=== PATIENT | female | born 1995 | race Caucasian/White ===

== ENCOUNTER 2016-11-18 08:27 | Emergency (ER) | payer SELFPAY ==
[2016-11-18] MEDS ORDERED: ONDANSETRON 4 MG TAB.RAPDIS PO ONE (09:32)
[2016-11-18] MEDS ORDERED: PREDNISONE 20 MG TABLET PO ONE (09:32)
[2016-11-18] MEDS ORDERED: OXYCODONE-ACETAMINOPHEN 5-325 MG TABLET PO ONE (09:32)
--- NOTE | 2016-11-18 09:40 | ER Document Report ---
ED ENT - General Mode of Arrival: Ambulatory Information source: Patient TRAVEL OUTSIDE OF THE [place] IN LAST 30 DAYS: No - HPI Patient complains to provider of: Throat problem Associated symptoms: Other - See above <DEAN PADILLA - Last Filed: 11/18/16 09:35> <ZACK SORIA - Last Filed: 11/18/16 11:08> - General Chief Complaint: Sore Throat Stated Complaint: sore throat Time Seen by Provider: 11/18/16 09:27 Notes: Patient is a 21 year old female who presents to the emergency department complaining of a sore throat onset 2 days ago. Patient states that it is painful to swallow and turn her head. Patient also complains of a fever, diaphoresis, vomiting, and swollen lymph nodes. Patient's last menstrual cycle was about 3 weeks ago. (DEAN PADILLA) - Related Data Allergies/Adverse Reactions: No Known Allergies Allergy (Unverified 11/18/16 08:38) Past Medical History - General Information source: Patient - Social History Smoking Status: Current Every Day Smoker Cigarette use (# per day): Yes - 5 Frequency of alcohol use: None Drug Abuse: Marijuana Family History: Reviewed & Not Pertinent Patient has suicidal ideation: No Patient has homicidal ideation: No - Immunizations Immunizations up to date: Yes Hx Diphtheria, Pertussis, Tetanus Vaccination: No <DEAN PADILLA - Last Filed: 11/18/16 09:35> Review of Systems - Review of Systems Constitutional: See HPI, Diaphoresis, Fever EENT: See HPI, Throat pain Cardiovascular: No symptoms reported Respiratory: No symptoms reported Gastrointestinal: See HPI, Vomiting Genitourinary: No symptoms reported Female Genitourinary: No symptoms reported Musculoskeletal: No symptoms reported Skin: No symptoms reported Hematologic/Lymphatic: No symptoms reported Neurological/Psychological: No symptoms reported -: Yes All other systems reviewed and negative <DEAN PADILLA - Last Filed: 11/18/16 09:35> Physical Exam - Vital signs Interpretation: Normal - General General appearance: Appears well, Alert - HEENT Head: Normocephalic, Atraumatic Tympanic membrane: Normal - not red Pharynx: Exudate, Uvular edema - with redness, Other - Tonsills are red and swollen Neck: Lymphadenopathy - anterior cervical lymphnodes tender and swllen - Respiratory Respiratory status: No respiratory distress Chest status: Nontender Breath sounds: Normal Chest palpation: Normal - Cardiovascular Rhythm: Regular Heart sounds: Normal auscultation Murmur: No - Extremities General upper extremity: Normal inspection General lower extremity: Normal inspection - Neurological Neuro grossly intact: Yes Cognition: Normal Orientation: AAOx4 [place] Coma Scale Eye Opening: Spontaneous Belinda Coma Scale Verbal: Oriented [place] Coma Scale Motor: Obeys Commands Belinda Coma Scale Total: 15 Speech: Normal - hoarse - Psychological Associated symptoms: Normal affect, Normal mood - Skin Skin Temperature: Warm Skin Moisture: Dry Skin Color: Normal <DEAN PADILLA - Last Filed: 11/18/16 09:35> Course <DEAN PADILLA - Last Filed: 11/18/16 09:35> - Laboratory Result Diagrams: 11/18/16 09:58 <ZACK SORIA - Last Filed: 11/18/16 11:08> - Re-evaluation Re-evalutation: 11/18/16 11:06 When I was reviewing the discharge instructions with the patient, she also brought up the fact that she has had a painful swelling in her left axilla which she has squeezed 1 of them open and got pus out. There is another area that is still reddened and tender. She has a history of MRSA infections. Exam shows a small red swollen tender area that is not fluctuant in the anterior axilla on the left. (ZACK SORIA) - Vital Signs Vital signs: Temp Pulse Resp BP Pulse Ox 98.7 F 110 H 14 107/73 100 11/18/16 08:40 11/18/16 08:40 11/18/16 10:28 11/18/16 08:40 11/18/16 08:40 - Laboratory Laboratory results interpreted by me: 11/18/16 09:58 WBC 20.3 H Seg Neuts % (Manual) 90 H Band Neutrophils % 1 L Lymphocytes % (Manual) 8 L Monocytes % (Manual) 1 L Abs Neuts (Manual) 18.5 H Discharge <DEAN PADILLA - Last Filed: 11/18/16 09:35> <ZACK SORIA - Last Filed: 11/18/16 11:08> - Discharge Clinical Impression: Strep throat, Abscess Leukocytosis Qualifiers: Leukocytosis type: unspecified Qualified Code(s): D72.829 - Elevated white blood cell count, unspecified Condition: Stable Disposition: HOME, SELF-CARE Additional Instructions: Strep Throat Your sore throat is due to the streptococcus germ (strep throat). Strep throat usually makes you feel quite ill with fever and aches, headache, swollen sore throat, and tender bumps under the angles of the jaw. Strep throat requires antibiotic treatment. Although the sore throat may go away by itself, complications such as rheumatic fever, kidney disease, or throat abscess can occur. We usually prescribe antibiotics by mouth. Be sure to take the medicine until it's gone. If you stop early, the strep may come back. If you are vomiting, are severely ill, or can't remember to take pills, we can give you an antibiotic shot. Take acetaminophen or ibuprofen for pain and fever. Sip frequent clear liquids, or use popsicles or ice chips. Anesthetic sprays or lozenges may help. Make sure the air in the room is not too dry. Avoid using decongestants or antihistamines. Call the doctor if there is no improvement in three days, or if you have difficulty breathing, increasing throat pain, high fever, rash, or frequent vomiting. Abscess You have an abscess (boil). This a pus-forming infection, usually due to staph. Some boils may be left to drain on their own, but most require lancing. From the time the tender lump first appears, it may be three or four days before the abscess is ready to ino. Local heat and rest help at this stage of treatment. An antibiotic may prevent spread of the infection. Once the abscess is opened, packing may be placed into it. This is done so pus is not sealed inside by premature closure of the cavity. The packing will be removed at your follow-up visit or you may be advised to remove it yourself at home. Sometimes this packing must be replaced a few times during healing. The wound will heal with surprisingly little scar. Depending on the size and location of an abscess, healing can take one to four weeks. You may shower and wash the area around the incision site two or three times a day. Antibiotics may be prescribed, but are usually not necessary after an abscess has been drained. If you develop fever, chilling, worsening pain, or increasing swelling in the area, call the doctor or return immediately. TAKE THE MEDICATIONS PRESCRIBED. DRINK PLENTY OF FLUIDS. TAKE TYLENOL AND MOTRIN FOR FEVER IF NEEDED. REST. FOLLOW UP WITH A LOCAL MEDICAL DOCTOR IF NOT IMPROVING. RETURN TO THE EMERGENCY ROOM IF ANY NEW OR WORSENING SYMPTOMS. Prescriptions: Cephalexin Monohydrate [Keflex 500 mg Capsule] 500 mg PO TID #30 capsule Hydrocodone/Acetaminophen [Hydrocodon-Acetaminophen 5-325] 1 each PO Q4 PRN #15 tablet PRN Reason: For Pain Sulfamethoxazole/Trimethoprim [Bactrim Ds Tablet] 2 tab PO BID #28 tablet Forms: Return to Work Scribe Attestation: 11/18/16 10:59 I personally performed the services described in the documentation, reviewed and edited the documentation which was dictated to the scribe in my presence, and it accurately records my words and actions. (ZACK SORIA) Scribe Documentation - Scribe Written by Anuel:: anuel Chandler, 11/18/16, 0941 acting as scribe for :: Hunter <DEAN PADILLA - Last Filed: 11/18/16 09:35>
[2016-11-18 10:11] LABS: HEMATOCRIT 38.1 % (36.0-47.0); HEMOGLOBIN 12.6 g/dL (12.0-15.5); HGB HCT DIFFERENCE -0.3; MEAN CORPUSCULAR HEMOGLOBIN 28.5 pg (27.0-33.4); MEAN CORPUSCULAR HGB CONC 33.1 g/dL (32.0-36.0); MEAN CORPUSCULAR VOLUME 86 fl (80-97); RED BLOOD COUNT 4.42 10^6/uL (3.72-5.28); RED CELL DISTRIBUTION WIDTH 13.4 % (11.5-14.0); WHITE BLOOD COUNT 20.3 10^3/uL (4.0-10.5)
[2016-11-18 10:27] LABS: BAND NEUTROPHILS % (MANUAL) 1 % (3-5); BASOPHILS % (MANUAL) 0 % (0-2); EOSINOPHILS % (MANUAL) 0 % (0-6); LYMPHOCYTES % (MANUAL) 8 % (13-45); TOTAL CELLS COUNTED 100
[2016-11-18 10:28] LABS: OVALOCYTES 1+; POIKILOCYTOSIS 1+
[2016-11-18] MEDS ORDERED: LIDOCAINE 1% INJ-PF (10 MG/ML) 30 ML SDV INJ ONE (10:55)
[2016-11-18] MEDS ORDERED: CEFTRIAXONE INJ 1000 MG VIAL IM ONE (10:55)
[2016-11-18 11:43] VITALS: BP 111/72
== END 2016-11-18 11:44 | disposition home or self-care (01) ==
LOC: ER 08:27
DX: J02.0 Streptococcal pharyngitis (principal); L02.412 Cutaneous abscess of left axilla; D72.829 Elevated white blood cell count, unspecified; R50.9 Fever, unspecified; R61 Generalized hyperhidrosis; R11.10 Vomiting, unspecified; R59.1 Generalized enlarged lymph nodes; F17.210 Nicotine dependence, cigarettes, uncomplicated; Z86.14 Personal history of Methicillin resistant Staphylococcus aureus infection
CPT/HCPCS: 99283; 96372; 36415; 87880; 84703; 85025; 86308; S0119; J3490; J7512; J0696

== ENCOUNTER 2017-01-16 10:33 | Emergency (ER) | payer SELFPAY ==
--- NOTE | 2017-01-16 11:19 | ER Document Report ---
ED GI/ - General Chief Complaint: Vag Bleeding, +preg <12wks Stated Complaint: VAGINAL BLEEDING Time Seen by Provider: 01/16/17 11:16 Mode of Arrival: Ambulatory Information source: Patient Notes: [age]-year-old G0 female with brown vaginal spotting and Monday none today, no cramps, nausea without vomiting, here in the emergency department to determine if she is actually or not. She had a home test that was positive last Monday. LMP 12/06/2016/. No dysuria or vaginal discharge. TRAVEL OUTSIDE OF THE [place] IN LAST 30 DAYS: No - Related Data Allergies/Adverse Reactions: No Known Allergies Allergy (Unverified 11/18/16 08:38) Past Medical History - General Information source: Patient - Social History Smoking Status: Current Some Day Smoker Frequency of alcohol use: None Drug Abuse: Marijuana - monday Lives with: Spouse/Significant other Family History: Reviewed & Not Pertinent - Medical History Medical History: Negative Renal/ Medical History: Denies: Hx Peritoneal Dialysis Surgical Hx: Negative - Immunizations Immunizations up to date: Yes Hx Diphtheria, Pertussis, Tetanus Vaccination: No Review of Systems - Review of Systems Constitutional: No symptoms reported EENT: No symptoms reported Cardiovascular: No symptoms reported Respiratory: No symptoms reported Gastrointestinal: No symptoms reported Genitourinary: No symptoms reported Female Genitourinary: See HPI Musculoskeletal: No symptoms reported Skin: No symptoms reported Hematologic/Lymphatic: No symptoms reported Neurological/Psychological: No symptoms reported Physical Exam - Vital signs Vitals: Temp Pulse Resp BP Pulse Ox 98.4 F 68 16 114/63 100 01/16/17 10:47 01/16/17 10:47 01/16/17 10:47 01/16/17 10:47 01/16/17 10:47 Interpretation: Normal - General General appearance: Appears well, Alert - HEENT Head: Normocephalic, Atraumatic Eyes: Normal Conjunctiva: Normal Pupils: PERRL Mucous membranes: Normal Neck: Supple. No: Lymphadenopathy - Respiratory Respiratory status: No respiratory distress Chest status: Nontender Breath sounds: Normal Chest palpation: Normal - Cardiovascular Rhythm: Regular Heart sounds: Normal auscultation Murmur: No - Abdominal Inspection: Normal Distension: No distension Bowel sounds: Normal Tenderness: Nontender. No: Tender Organomegaly: No organomegaly - Back Back: Normal, Nontender. No: CVA tenderness - Extremities General upper extremity: Normal inspection, Nontender, Normal color, Normal ROM , Normal temperature General lower extremity: Normal inspection, Nontender, Normal color, Normal ROM , Normal temperature, Normal weight bearing. No: Michelle's sign - Neurological Neuro grossly intact: Yes Cognition: Normal Orientation: AAOx4 [place] Coma Scale Eye Opening: Spontaneous Belinda Coma Scale Verbal: Oriented [place] Coma Scale Motor: Obeys Commands [place] Coma Scale Total: 15 Speech: Normal Motor strength normal: LUE, RUE, LLE, RLE Sensory: Normal - Psychological Associated symptoms: Normal affect, Normal mood - Skin Skin Temperature: Warm Skin Moisture: Dry Skin Color: Normal Skin irregularity: negative: Rash Course - Re-evaluation Re-evalutation: 01/16/17 13:06 37,859 quantitative, o positive. 01/16/17 14:12 yolk sac with fhr 125, viable IUP per radiologist - Vital Signs Vital signs: Temp Pulse Resp BP Pulse Ox 98.4 F 68 16 114/63 100 01/16/17 10:47 01/16/17 10:47 01/16/17 10:47 01/16/17 10:47 01/16/17 10:47 - Laboratory Laboratory results interpreted by me: 01/16/17 11:30 Beta HCG, Quant 49075.00 H Discharge - Discharge Clinical Impression: at early stage, viable IUP 7 weeks Condition: Good Disposition: HOME, SELF-CARE Instructions: ([facility]), [facility], [facility] ( [facility]), [facility] Additional Instructions: to health dept for follow u; to er if any bleeding or pain copy of labs given to you Please complete the patient satisfaction survey if you get one, and return it.. If you do not receive a survey, then you can go to the [facility] website, [email or web address] and place your comments about your very good care. Thank you very much. It was a pleasure being your medical provider today. Forms: Return to Work
--- NOTE | 2017-01-16 14:14 | RADIOLOGY REPORT (SQ) ---
EXAM DESCRIPTION: U/S OB TRANSVAGINAL W/O DOP COMPLETED DATE/TIME: 01/16/2017 1:56 pm REASON FOR STUDY: , vaginal bleeding COMPARISON: None. TECHNIQUE: Transvaginal static and realtime grayscale images acquired of the pelvis. Additional esther cted spectral and color Doppler images recorded. All images stored on PACs. [id number] LIMITATIONS: None. FINDINGS: FETUS: Living intrauterine . EGA: 7 weeks GARRY: 09/04/2017 FHR: 123 beats per minute. SUBCHORIONIC BLEED: Yes SIZE OF BLEED: Small UTERUS: No masses. No anomalies. CERVICAL LENGTH: 3.1 cm Closed. RIGHT ADNEXA: Normal ovary with normal vascular flow. No adnexal free fluid. No adnexal masses. LEFT ADNEXA: Left ovary was not visualized. No adnexal free fluid. No adnexal masses. FREE FLUID: None. OTHER: No other significant finding. IMPRESSION: LIVING INTRAUTERINE . EGA 7 weeks Trimester of : First - 0 to 13 weeks. TECHNICAL DOCUMENTATION: JOB ID: [id number] [employer]- All Rights Reserved
[2017-01-16 14:27] VITALS: BP 123/70
== END 2017-01-16 14:37 | disposition home or self-care (01) ==
LOC: ER 10:33
DX: O26.851 Spotting complicating pregnancy, first trimester (principal); O99.331 Smoking (tobacco) complicating pregnancy, first trimester; Z3A.01 Less than 8 weeks gestation of pregnancy
CPT/HCPCS: 36415; 76817; 84702; 86900; 86901; 99284

== ENCOUNTER 2017-01-17 04:18 | Emergency (ER) | payer SELFPAY ==
[2017-01-17 05:39] LABS: ABSOLUTE EOSINOPHILS # (AUTO) 0.1 10^3/uL (0.0-0.6); ABSOLUTE LYMPHOCYTES (AUTO) 2.1 10^3/uL (0.5-4.7); ABSOLUTE MONOCYTES (AUTO) 0.4 10^3/uL (0.1-1.4); ABSOLUTE NEUT (AUTO) 4.7 10^3/uL (1.7-8.2); BASOPHILS % (AUTO) 0.4 % (0-2); EOSINOPHILS % (AUTO) 1.1 % (0-6); HEMATOCRIT 35.6 % (36.0-47.0); HGB HCT DIFFERENCE 0.4; LYMPHOCYTES % (AUTO) 28.7 % (13-45); MEAN CORPUSCULAR HGB CONC 33.8 g/dL (32.0-36.0); MEAN CORPUSCULAR VOLUME 86 fl (80-97); MONOCYTES % (AUTO) 5.8 % (3-13); RED BLOOD COUNT 4.14 10^6/uL (3.72-5.28); RED CELL DISTRIBUTION WIDTH 13.8 % (11.5-14.0); WHITE BLOOD COUNT 7.3 10^3/uL (4.0-10.5)
--- NOTE | 2017-01-17 06:19 | ER Document Report ---
ED General - General Chief Complaint: Vag Bleeding, +preg <12wks Stated Complaint: VAGINAL BLEEDING Time Seen by Provider: 01/17/17 06:00 Notes: 21-year-old female presents with resolving moderate intensity vaginal bleeding spotting and lower abdominal cramping. This started 2 days ago. She had a positive test last week, soon after missing a period, her last menstrual period was sometime in early November but she is not sure exactly when. She has never been before. Patient was seen by a provider in triage and had a full workup ordered including ultrasound blood. She is quite frustrated and wants to leave. TRAVEL OUTSIDE OF THE [place] IN LAST 30 DAYS: No - Related Data Allergies/Adverse Reactions: No Known Allergies Allergy (Unverified 11/18/16 08:38) Past Medical History - Social History Smoking Status: Former Smoker Drug Abuse: Marijuana Family History: Reviewed & Not Pertinent Patient has suicidal ideation: No Patient has homicidal ideation: No Renal/ Medical History: Denies: Hx Peritoneal Dialysis - Immunizations Immunizations up to date: Yes Hx Diphtheria, Pertussis, Tetanus Vaccination: No Review of Systems - Review of Systems Notes: REVIEW OF SYSTEMS GEN: Denies fever, chills, weight loss ENT: Denies sore throat, nasal discharge, ear pain EYES: Denies blurry vision, eye pain, discharge CV: Denies chest pain, palpitations, edema RESP: Denies cough, shortness of breath, wheezing GI: Abdominal cramping MSK: Denies joint pain/swelling, edema, SKIN: Denies rash, skin lesions LYMPH: Denies swollen glands/lymph nodes NEURO: Denies headache, focal weakness or numbness, dizziness PSYCH: Denies depression, suicidal or homicidal ideation PHYSICAL EXAMINATION General: No acute distress, well-nourished Head: Atraumatic, normocephalic ENT: Mouth normal, oropharynx moist, no exudates or tonsillar enlargement Eyes: Conjunctiva normal, pupils equal, lids normal Neck: No JVD, supple, no guarding CVS: Normal rate, regular rhythm, no murmurs Resp: No resp distress, equal and normal breath sounds bilaterally GI: Mild suprapubic tenderness Ext: No deformities, no edema, normal range of motion in upper and lower ext Back: No CVA or midline TTP Skin: No rash, warm Lymphatic: No lymphadeopathy noted Neuro: Awake, alert. Face symmetric. GCS 15. Physical Exam - Vital signs Vitals: Temp Pulse Resp BP Pulse Ox 97.7 F 61 14 112/70 100 01/17/17 04:23 01/17/17 04:23 01/17/17 04:23 01/17/17 04:23 01/17/17 04:23 Course - Re-evaluation Re-evalutation: 01/17/17 06:17 21-year-old primiparous female presents with vaginal bleeding at the setting of a positive patency test. Her cramping and bleeding is improving her vital signs are stable. Her ultrasound shows a living intrauterine . At this time her diagnosis would be threatened , this was discussed with the patient. She will decide on the feet of the as an outpatient and is stable for discharge. I have discussed with the patient there likely diagnosis, aftercare plan, follow -up plans and my usual and customary return precautions. They verbalized understanding of this. 01/17/17 06:24 - Vital Signs Vital signs: Temp Pulse Resp BP Pulse Ox 97.7 F 61 14 112/70 100 01/17/17 04:23 01/17/17 04:23 01/17/17 04:23 01/17/17 04:23 01/17/17 04:23 - Laboratory Result Diagrams: 01/17/17 05:18 Laboratory results interpreted by me: 01/17/17 05:18 Hct 35.6 L - Diagnostic Test Radiology reviewed: Image reviewed, Reports reviewed Discharge - Discharge Clinical Impression: Threatened miscarriage Condition: Good Disposition: HOME, SELF-CARE Instructions: Ob-Review Rn Doctors, ([facility]), Threatened Abortions ( Patients)
[2017-01-17 06:36] VITALS: BP 118/72
== END 2017-01-17 06:35 | disposition home or self-care (01) ==
LOC: ER 04:18
DX: O20.0 Threatened abortion (principal); O26.891 Other specified pregnancy related conditions, first trimester; R10.9 Unspecified abdominal pain; Z3A.01 Less than 8 weeks gestation of pregnancy; Z87.891 Personal history of nicotine dependence
CPT/HCPCS: 36415; 84702; 85025; 99284

== ENCOUNTER 2017-01-28 12:00 | Emergency (ER) | payer SELFPAY ==
--- NOTE | 2017-01-28 12:37 | ER Document Report ---
HPI - HPI Patient complains to provider of: ob check Onset: Last week Onset/Duration: Better Quality of pain: No pain Pain Level: Denies Context: Patient states that she is currently and had vaginal bleeding that started last month. Patient states that she last had bleeding 3 days ago that lasted 1 day and has since stopped. Patient denies any vaginal bleeding for the past 2 days. Patient is and has not had any care. Patient denies any lightheadedness or dizziness. Patient denies any abdominal pain. Patient states that because she had a recurrent episode of vaginal bleeding she is worried she is having a miscarriage and she just wants to get checked out today. Associated Symptoms: None Exacerbated by: Denies Relieved by: Denies Similar symptoms previously: Yes Recently seen / treated by doctor: Yes - ROS ROS below otherwise negative: Yes Systems Reviewed and Negative: Yes All other systems reviewed and negative - CONSTITUTIONAL Constitutional: DENIES: Fever, Chills - GASTROINTESTINAL Gastrointestinal: DENIES: Abdominal Pain, Nausea, Patient vomiting - REPRODUCTIVE Reproductive: REPORTS: Abnormal bleeding / discharge - 2 days ago - MUSCULOSKELETAL Musculoskeletal: DENIES: Back Pain - DERM Skin Color: Normal Skin Problems: None Past Medical History - General Information source: Patient Last Menstrual Period: 8 wks preg - Social History Smoking Status: Current Every Day Smoker Smoking Education Provided: Yes Frequency of alcohol use: None Drug Abuse: None Occupation: none Family History: Reviewed & Not Pertinent - Medical History Medical History: Negative Renal/ Medical History: Denies: Hx Peritoneal Dialysis Surgical Hx: Negative - Immunizations Immunizations up to date: Yes Hx Diphtheria, Pertussis, Tetanus Vaccination: No Vertical Provider Document - CONSTITUTIONAL Agree With Documented VS: Yes Exam Limitations: No Limitations General Appearance: WD/WN, No Apparent Distress - INFECTION CONTROL TRAVEL OUTSIDE OF THE [place] IN LAST 30 DAYS: No - HEENT HEENT: Atraumatic, Normocephalic - NECK Neck: Normal Inspection - RESPIRATORY Respiratory: Breath Sounds Normal, No Respiratory Distress O2 Sat by Pulse Oximetry: 100 - CARDIOVASCULAR Cardiovascular: Regular Rate, Regular Rhythm, No Murmur - GI/ABDOMEN Gastrointestinal: Abdomen Soft, Abdomen Non-Tender, No Organomegaly - BACK Back: Normal Inspection. negative: CVA Tenderness-Right, CVA Tenderness-Left - MUSCULOSKELETAL/EXTREMETIES Musculoskeletal/Extremeties: MAEW - NEURO Level of Consciousness: Awake, Alert, Appropriate Motor/Sensory: No Motor Deficit - DERM Integumentary: Warm, Dry, No Rash Course - Vital Signs Vital signs: Temp Pulse Resp BP Pulse Ox 97.9 F 72 14 109/69 100 01/28/17 12:06 01/28/17 12:06 01/28/17 12:06 01/28/17 12:06 01/28/17 12:06 - Laboratory Result Diagrams: 01/28/17 12:46 Discharge - Discharge Clinical Impression: Hx of vaginal bleeding, hx subchorionic bleed Condition: Stable Disposition: HOME, SELF-CARE Instructions: Bleeding During Early ([facility]) Additional Instructions: Return immediately for any new or worsening symptoms Followup with your primary care provider, call tomorrow to make a followup appointment Follow-up with your [facility] TECHNICIAN for a recheck. [facility] - [facility]17 [facility] [Provider Group] - Follow up in 3-5 days
[2017-01-28 13:11] LABS: ABSOLUTE EOSINOPHILS # (AUTO) 0.1 10^3/uL (0.0-0.6); ABSOLUTE LYMPHOCYTES (AUTO) 1.6 10^3/uL (0.5-4.7); ABSOLUTE MONOCYTES (AUTO) 0.4 10^3/uL (0.1-1.4); ABSOLUTE NEUT (AUTO) 4.7 10^3/uL (1.7-8.2); BASOPHILS % (AUTO) 0.2 % (0-2); EOSINOPHILS % (AUTO) 1.6 % (0-6); HEMATOCRIT 36.4 % (36.0-47.0); HEMOGLOBIN 12.1 g/dL (12.0-15.5); HGB HCT DIFFERENCE -0.1; LYMPHOCYTES % (AUTO) 22.9 % (13-45); MEAN CORPUSCULAR HEMOGLOBIN 28.6 pg (27.0-33.4); MEAN CORPUSCULAR HGB CONC 33.1 g/dL (32.0-36.0); MEAN CORPUSCULAR VOLUME 86 fl (80-97); MONOCYTES % (AUTO) 5.6 % (3-13); RED BLOOD COUNT 4.23 10^6/uL (3.72-5.28); RED CELL DISTRIBUTION WIDTH 13.8 % (11.5-14.0); SEGMENTED NEUTROPHILS % (AUTO) 69.7 % (42-78); WHITE BLOOD COUNT 6.8 10^3/uL (4.0-10.5)
[2017-01-28 14:18] VITALS: BP 118/62
== END 2017-01-28 14:25 | disposition home or self-care (01) ==
LOC: ER 12:00
DX: N93.9 Abnormal uterine and vaginal bleeding, unspecified (principal); F17.210 Nicotine dependence, cigarettes, uncomplicated
CPT/HCPCS: 36415; 84702; 85025; 99284

== ENCOUNTER 2017-02-15 10:38 | Emergency (ER) | payer SELFPAY ==
[2017-02-15 11:17] LABS: APPEARANCE,URINE SLIGHTLY-CLOUDY; BILIRUBIN,URINE NEGATIVE (NEGATIVE); GLUCOSE, URINE NEGATIVE (NEGATIVE); KETONES,URINE NEGATIVE (NEGATIVE); LEUKOCYTE ESTERASE,URINE NEGATIVE (NEGATIVE); NITRITE,URINE NEGATIVE (NEGATIVE); PROTEIN,URINE NEGATIVE (NEGATIVE); URINE SPECIFIC GRAVITY 1.004; UROBILINOGEN,URINE NEGATIVE mg/dL (<2.0)
--- NOTE | 2017-02-15 13:58 | ER Document Report ---
ED GI/ - General Chief Complaint: Vag Bleeding, +preg <12wks Stated Complaint: VAGINAL BLEEDING Time Seen by Provider: 02/15/17 11:27 Notes: pt is 21 yo , 11 wks gestation, presenting to ED c/o vaginal bleeding x 6 days. pt reports episodic bleeding since last month. no cramping. 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 pt has been evaluated in ED x 3 for same complaint. pt has not had any care as of yet due to lack of insurance. TRAVEL OUTSIDE OF THE [place] 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 LMP: 11 wk gestation : 1 Para: 0 OB ultrasound done: Yes Sexual history: Active Associated symptoms: None - Related Data Allergies/Adverse Reactions: No Known Allergies Allergy (Verified 02/15/17 10:48) Past Medical History - General Information source: Patient - Social History Smoking Status: Current Every Day Smoker Chew tobacco use (# tins/day): No Frequency of alcohol use: None Drug Abuse: None Lives with: Family Family History: Reviewed & Not Pertinent - Medical History Medical History: Negative Renal/ Medical History: Denies: Hx Peritoneal Dialysis Surgical Hx: Negative - Immunizations Immunizations up to date: Yes Hx Diphtheria, Pertussis, Tetanus Vaccination: No Review of Systems - Review of Systems Constitutional: No symptoms reported EENT: No symptoms reported Cardiovascular: No symptoms reported Respiratory: No symptoms reported Gastrointestinal: No symptoms reported Genitourinary: No symptoms reported Female Genitourinary: See HPI Musculoskeletal: No symptoms reported Skin: No symptoms reported Hematologic/Lymphatic: No symptoms reported Neurological/Psychological: No symptoms reported Physical Exam - Vital signs Vitals: Temp Pulse Resp BP Pulse Ox 98.5 F 71 14 131/74 H 100 02/15/17 10:46 02/15/17 10:46 02/15/17 10:46 02/15/17 10:46 02/15/17 10:46 Interpretation: Normal - General General appearance: Appears well, Alert - HEENT Head: Normocephalic, Atraumatic Eyes: Normal Pupils: PERRL - Respiratory Respiratory status: No respiratory distress Chest status: Nontender Breath sounds: Normal Chest palpation: Normal - Cardiovascular Rhythm: Regular Heart sounds: Normal auscultation Murmur: No - Abdominal Inspection: Normal Distension: No distension Bowel sounds: Normal Tenderness: Nontender Organomegaly: No organomegaly - Genitourinary External exam: Normal Speculum exam: Normal, Cervix closed Vaginal bleeding: None Bimanuel exam: Normal - Back Back: Normal, Nontender - Extremities General upper extremity: Normal inspection, Nontender, Normal color, Normal ROM , Normal temperature General lower extremity: Normal inspection, Nontender, Normal color, Normal ROM , Normal temperature, Normal weight bearing. No: Michelle's sign - Neurological Neuro grossly intact: Yes Cognition: Normal Orientation: AAOx4 [place] Coma Scale Eye Opening: Spontaneous [place] Coma Scale Verbal: Oriented [place] Coma Scale Motor: Obeys Commands [place] Coma Scale Total: 15 Speech: Normal Motor strength normal: LUE, RUE, LLE, RLE Sensory: Normal - Psychological Associated symptoms: Normal affect, Normal mood - Skin Skin Temperature: Warm Skin Moisture: Dry Skin Color: Normal Course - Re-evaluation Re-evalutation: 02/15/17 12:24 pt evaluated. denies any pain. 02/15/17 13:10 bedside US done by Dr Kaye, no movement, no cardiac activity seen. BHCG quant declining. Bhcg on 01/28/17 [id number], today BHCG down to [id number] 02/15/17 14:00 pt re-evaluated. c/o nausea. requesting to eat. declines anti-emetic at this time. asked patient not to eat until after US done. pt agreeable 02/15/17 14:40 pt back from US. US tech reports + cardiac activity with HR 163, + movement, large subchorionic bleed. 02/15/17 16:15 discussed pt and US results with OB risk consulting treasury director Dr Urbina who recommends pelvic rest and follow up Health department tomorrow to schedule weekly US to confirm heart beat until can be seen by OB once Medicaid is approved. discussed plan with patient. pt is agreeable and stable for discharge - Vital Signs Vital signs: Temp Pulse Resp BP Pulse Ox 98.1 F 65 14 129/70 H 100 02/15/17 14:51 02/15/17 14:51 02/15/17 14:51 02/15/17 14:51 02/15/17 14:51 - Laboratory Laboratory results interpreted by me: 02/15/17 02/15/17 10:51 11:45 Beta HCG, Quant [id number] H Urine Blood SMALL H Urine HCG, Qual POSITIVE H Discharge - Discharge Clinical Impression: Bleeding in early , Threatened miscarriage Subchorionic bleed Qualifiers: Fetus number: single or unspecified fetus Trimester: first trimester Qualified Code(s): O41.8X10 - Other specified disorders of amniotic fluid and membranes, first trimester, not applicable or unspecified Disposition: HOME, SELF-CARE Instructions: Bleeding During Early ([facility]), Repeat Blood Test ([facility]), Threatened Miscarriage ([facility]) Additional Instructions: You have a subchorionic bleed, this is bleeding caused by the placenta pulling away from the uterus. This can cause vaginal bleeding during Your hormone counts have declined. This can indicate a threatened miscarriage Dr Urbina, OB risk consulting treasury director, recommends you follow up with Health Department tomorrow to arrange weekly ultrasounds to confirm heartbeat pelvic rest return to ER for increased bleeding, cramping or worsening of status
--- NOTE | 2017-02-15 14:52 | RADIOLOGY REPORT (SQ) ---
EXAM DESCRIPTION: U/S OB TRANSVAGINAL W/O DOP COMPLETED DATE/TIME: 02/15/2017 2:35 pm REASON FOR STUDY: vaginal bleeding COMPARISON: None. TECHNIQUE: Transvaginal static and realtime grayscale images acquired of the pelvis. Additional esther cted spectral and color Doppler images recorded. All images stored on PACs. [id number] LIMITATIONS: None. FINDINGS: FETUS: Living intrauterine . EGA: 11 weeks 2 days GARRY: 09/04/2017 FHR: 163 beats per minute. SUBCHORIONIC BLEED: Yes SIZE OF BLEED: 2.9 x 3.4 x 1.3 cm UTERUS: No masses. No anomalies. CERVICAL LENGTH: 2.2 sign Closed. RIGHT ADNEXA: Normal ovary with normal vascular flow. No adnexal free fluid. Small right ovarian cyst is identified measuring 1.9 x 1.8 x 1.6 cm LEFT ADNEXA: Normal ovary with normal vascular flow. No adnexal free fluid. No adnexal masses. FREE FLUID: None. OTHER: No other significant finding. IMPRESSION: LIVING INTRAUTERINE . EGA 11 weeks 2 days Trimester of : First - 0 to 13 weeks. TECHNICAL DOCUMENTATION: JOB ID: [id number] [employer]- All Rights Reserved
[2017-02-15 14:53] VITALS: BP 129/70
== END 2017-02-15 14:53 | disposition home or self-care (01) ==
LOC: ER 10:38
DX: O46.91 Antepartum hemorrhage, unspecified, first trimester (principal); O20.0 Threatened abortion; O41.8X10 Other specified disorders of amniotic fluid and membranes, first trimester, not applicable or unspecified; Z3A.11 11 weeks gestation of pregnancy; F17.200 Nicotine dependence, unspecified, uncomplicated
CPT/HCPCS: 36415; 76817; 81001; 81025; 84702; 86900; 86901; 99284

== ENCOUNTER 2017-07-13 15:18 | Outpatient (CLI) | payer MEDICAID ==
[2017-07-13 15:53] LABS: APPEARANCE,URINE CLEAR; BILIRUBIN,URINE NEGATIVE (NEGATIVE); COLOR,URINE COLORLESS; GLUCOSE, URINE NEGATIVE (NEGATIVE); KETONES,URINE NEGATIVE (NEGATIVE); LEUKOCYTE ESTERASE,URINE NEGATIVE (NEGATIVE); NITRITE,URINE NEGATIVE (NEGATIVE); PROTEIN,URINE NEGATIVE (NEGATIVE); URINE SPECIFIC GRAVITY 1.001; UROBILINOGEN,URINE NEGATIVE mg/dL (<2.0)
[2017-07-13 16:17] LABS: URINE AMPHETAMINES SCREEN NEGATIVE; URINE BARBITURATES SCREEN NEGATIVE; URINE BENZODIAZEPINES SCREEN NEGATIVE; URINE COCAINE SCREEN NEGATIVE; URINE METHADONE SCREEN NEGATIVE; URINE PHENCYCLIDINE SCREEN NEGATIVE
[2017-07-13 16:24] LABS: URINE MARIJUANA (THC) SCREEN UNCONFIRMED POSITIVE
--- NOTE | 2017-07-13 16:30 | Non Stress Test Report ---
Non Stress Test Datetime Report Generated by CPN: 07/13/2017 16:30 DEMOGRAPHIC EGA NST: 32.3 INDICATION Indication for Study: Ordered by Provider Indication for Study (NST) Other: LC MONITORING Monitor Explained: Monitor Explained; Test Explained; Patient Verbalized Understanding Time on Monitor: 07/13/2017 15:44 Time off Monitor: 07/13/2017 16:18 NST Duration: 34 NST INTERVENTIONS NST Interventions: PO Hydration; Reposition Patient Physician Notified NST: C Salvador CNM BABY A: [id number] BABY A Movement : Present Contraction Frequency : 0 FHR Baseline : 135 Accelerations : 15X15 Decelerations : None Variability : Moderate 6-25bpm NST Review: Meets Criteria for Reactive NST NST Review and Verified By : Jacklyn Camp RNC NST Results: Reactive NST REPORT Report Trigger: Send Report
== END 2017-07-13 16:26 | disposition home or self-care (01) ==
LOC: LC 15:18
PROVIDERS: ATTEND Obstetrics & Gynecology
PROC: 4A1HXCZ Monitoring of Products of Conception, Cardiac Rate, External Approach (ICD-10-PCS; principal; 2017-07-13)
DX: O99.89 Other specified diseases and conditions complicating pregnancy, childbirth and the puerperium (principal); M54.9 Dorsalgia, unspecified; Z3A.32 32 weeks gestation of pregnancy
CPT/HCPCS: 59025; 80307; 81001; 87086

== ENCOUNTER 2017-08-12 01:25 | Observation (INO) | payer MEDICAID ==
[2017-08-12 02:25] LABS: APPEARANCE,URINE CLEAR; BILIRUBIN,URINE NEGATIVE (NEGATIVE); COLOR,URINE STRAW; GLUCOSE, URINE NEGATIVE (NEGATIVE); KETONES,URINE NEGATIVE (NEGATIVE); LEUKOCYTE ESTERASE,URINE NEGATIVE (NEGATIVE); NITRITE,URINE NEGATIVE (NEGATIVE); PROTEIN,URINE NEGATIVE (NEGATIVE); URINE SPECIFIC GRAVITY 1.004; UROBILINOGEN,URINE NEGATIVE mg/dL (<2.0)
[2017-08-12 02:36] LABS: AMNISURE (ROM) NEGATIVE (NEGATIVE)
[2017-08-12 02:40] LABS: URINE AMPHETAMINES SCREEN NEGATIVE; URINE BARBITURATES SCREEN NEGATIVE; URINE BENZODIAZEPINES SCREEN NEGATIVE; URINE COCAINE SCREEN NEGATIVE; URINE MARIJUANA (THC) SCREEN NEGATIVE; URINE METHADONE SCREEN NEGATIVE; URINE PHENCYCLIDINE SCREEN NEGATIVE
[2017-08-12 02:53] LABS: ABSOLUTE EOSINOPHILS # (AUTO) 0.2 10^3/uL (0.0-0.6); ABSOLUTE LYMPHOCYTES (AUTO) 1.9 10^3/uL (0.5-4.7); ABSOLUTE MONOCYTES (AUTO) 0.7 10^3/uL (0.1-1.4); ABSOLUTE NEUT (AUTO) 9.1 10^3/uL (1.7-8.2); BASOPHILS % (AUTO) 0.2 % (0-2); EOSINOPHILS % (AUTO) 1.5 % (0-6); HEMATOCRIT 31.1 % (36.0-47.0); LYMPHOCYTES % (AUTO) 15.9 % (13-45); MEAN CORPUSCULAR HEMOGLOBIN 25.4 pg (27.0-33.4); MEAN CORPUSCULAR HGB CONC 32.2 g/dL (32.0-36.0); MEAN CORPUSCULAR VOLUME 79 fl (80-97); MONOCYTES % (AUTO) 5.5 % (3-13); PLATELET COUNT 203 10^3/uL (150-450); RED BLOOD COUNT 3.93 10^6/uL (3.72-5.28); RED CELL DISTRIBUTION WIDTH 14.8 % (11.5-14.0); SEGMENTED NEUTROPHILS % (AUTO) 76.9 % (42-78); TOTAL CELLS COUNTED % (AUTO) 100 %; WHITE BLOOD COUNT 11.8 10^3/uL (4.0-10.5)
[2017-08-12 03:09] LABS: FIBRINOGEN 439 mg/dL (209-497); INTERNATIONAL RATION (INR) 0.81; PARTIAL THROMBOPLASTIN TIME 24.2 SEC (23.5-35.8); PROTHROMBIN TIME 11.8 SEC (11.4-15.4)
--- NOTE | 2017-08-12 03:49 | RADIOLOGY REPORT (SQ) ---
EXAM DESCRIPTION: U/S OB LIMITED CLINICAL HISTORY: 22 years, Female, wellbeing, MEREDITH, placental status COMPARISON: 02.15.17 LIMITATIONS: None. FINDINGS: Placenta: Fundal, placenta measures up to 8.2 cm in thickness and there are low-attenuation cystic areas of the placenta with no significant vascularity measure up to 2.7 cm each probably due to intervillous thrombus; cannot exclude gestational trophoblastic disease. No evidence of placenta previa/abruption. position: Vertex MEREDITH: 11.0 cm, clear Cardiac activity: 150 bpm IMPRESSION: Prominent placenta with low-attenuation, avascular cystic areas which probably indicate intervillous thrombus. Cannot exclude gestational trophoblastic disease.
[2017-08-12] MEDS ORDERED: RINGERS SOLUTION,LACTATED 1,000 ML IV PRN (04:34)
[2017-08-12] MEDS ORDERED: RINGERS SOLUTION,LACTATED 1,000 ML IV ONE (04:34)
--- NOTE | 2017-08-12 04:53 | Admission Physical ---
Datetime Report Generated by CPN: 08/12/2017 04:52 CURRENT ADMISSION Chief Complaint: Uterine Contractions; Trauma/Fall Indication for Induction: Not Applicable Admit Impression : , Intrauterine ; No Active Labor; Intact Membranes; Observation/Evaluation Admit Plan: Admit to Unit; Observation/Evaluation ALLERGIES Medication Allergies: No Medication Allergies: No Known Allergies (08/12/2017) Latex: No Latex Allergies OBSTETRICAL HISTORY EDC: 09/04/2017 00:00 : 1 Para: 0 Term: 0 : 0 SAB: 0 IAB: 0 Ectopic: 0 Livin Cesareans: 0 VBACs: 0 Multiple Births: 0 Gestational Diabetes: No Rh Sensitization: No Incompetent Cervix: No GHAZAL: No Infertility: No ART Treatment: No Uterine Anomaly: No IUGR: No Hx Previous C/S: No Macrosomia: No Hx Loss/Stillborn: No PIH: No Hx : No Placenta Previa/Abruption: No Depression/PP Depression: No PTL/PROM: No Post Hemorrhage: No Current Procedures: Ultrasound Obstetrical History Comments: G1: current SEE RECORDS Alcohol: No Marijuana : Yes Marijuana Comments: + 07/13/17, Dr Ed millard Cocaine: No Other Illicit Drugs: No Cigarettes: Current Everyday Smoker. 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) INFECTIOUS HISTORY Gonorrhea: No Genital Herpes: No Chlamydia: No Tuberculosis: No Syphilis: No Hepatitis: No HIV/AIDS Exposure: No Rash or Viral Illness: No HPV: No PHYSICAL EXAM General: Normal HEENT: Normal Neurologic: Normal Thyroid: Deferred Heart: Normal Lungs: Normal Breast: Deferred Back: Normal Abdomen: Normal Genitourinary Exam: Normal Extremities: Normal DTRs: Normal Pelvic Type: Adequate Vital Signs: Reviewed VAGINAL EXAM Contraction Comments: irreg and irritability MEMBRANES Membranes: Intact FETUS A EGA: 36.5 Monitoring: External US FHR- Baseline: 125 Variability: Moderate 6-25bpm Accelerations: 15X15 Decelerations: None FHR Category: Category I Presentation: Vertex Admit Comment: 22yo at 36+5ega presents for fall. She reports slipping upon getting out of bathtub and falling directly onto abdomen. She reports abdominal and pelvic pain (pubic bone pain). Irregular contractions and irritability. Patient is a current every day smoker. 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 [facility] transfer at 30wks. Normal Anatomy. Pt has had MRSA in eye and in armpit - currently on precautions. Labs unremarkable. KB pending. US with possible thrombosed placental [place] and poss placental cyst. I spoke to the Radiologist Dr. Shoemaker and he agreed recommendation to eval with MFM - DDx in reports poss gestational trophoblastic disease. Reviewed with patient need to monitor for contractions. Reviewed withe patient that would recommend sending placenta for eval at delivery. Patient with difficulty with cervical exams and no need to check paitent at this time. Amnisure negative. Will send MFM consult on monday. Note out of work for this weekend. Plan for f/u monday. For now plan to monitor for 12 hours. PLANS FOR LABOR AND DELIVERY Feeding Preference: Formula Benefit of Breast Feed Discussed: Yes Circumcision: Yes INFORMED CONSENT Informed Consent Obtained: Vaginal Delivery; Risks, Benefits and Alternatives Discussed Signature: with User ID: [email or web address]
[2017-08-12] MEDS ORDERED: HYDROXYZINE PAMOATE 50 MG CAPSULE PO PRN (05:24)
[2017-08-12 07:49] LABS: FETAL RBC COUNT 3
[2017-08-12 07:53] LABS: KB INTERPRETATION POSITIVE (NEGATIVE)
== END 2017-08-12 14:31 | disposition home or self-care (01) ==
LOC: LC 01:25 → LR 04:40
PROVIDERS: ADMIT Student in an Organized Health Care Education/Training Program; ATTEND Student in an Organized Health Care Education/Training Program
PROC: 4A0HXCZ Measurement of Products of Conception, Cardiac Rate, External Approach (ICD-10-PCS; principal; 2017-08-12)
DX: O47.03 False labor before 37 completed weeks of gestation, third trimester (principal); O26.893 Other specified pregnancy related conditions, third trimester; T14.90XA Injury, unspecified, initial encounter; W01.0XXA Fall on same level from slipping, tripping and stumbling without subsequent striking against object, initial encounter; O99.333 Smoking (tobacco) complicating pregnancy, third trimester; F17.210 Nicotine dependence, cigarettes, uncomplicated; Z86.14 Personal history of Methicillin resistant Staphylococcus aureus infection; Z3A.36 36 weeks gestation of pregnancy; Z03.72 Encounter for suspected placental problem ruled out
CPT/HCPCS: 84112; 36415; 85025; 85384; 85362; 85610; 85730; 81005; 85460; 80307; 76815; 59025; G0378